=== PATIENT | female | born 1960 | race African-American/Black ===

== ENCOUNTER 2024-09-25 22:41 | Inpatient (IN) | payer OTHER, MEDICAID ==
[~2024-09-25] VITALS: Ht 157.5 cm; Wt 55.5 kg
[2024-09-25] MEDS ORDERED: LABETALOL 20 MG/4 ML VIAL ONE (23:44)
[2024-09-26] MEDS: LABETALOL HCL IV 100MG VIAL IV ONE (00:10)
[2024-09-26] MEDS ORDERED: CLONIDINE HCL 0.1 MG TABLET ONE (00:22)
[2024-09-26] MEDS: CLONIDINE HCL 0.1 MG TABLET PO ONE (00:42)
[2024-09-26] MEDS ORDERED: ACETAMINOPHEN W/ CODEINE#3 1 EA TABLET ONE (00:58)
[2024-09-26 01:17] LABS: BASOPHILS % (AUTO) 0.6 % (0.0-2.0); EOSINOPHILS % (AUTO) 0.6 % (0.0-6.0); HEMATOCRIT 35 % (33-45); HEMOGLOBIN 11.4 g/dL (11.5-14.8); LYMPHOCYTES # (AUTO) 1.2 K/uL (0.8-4.8); LYMPHOCYTES % (AUTO) 26.7 % (20.0-44.0); MEAN CORPUSCULAR HEMOGLOBIN 29 PG (26.0-33.0); MEAN CORPUSCULAR HGB CONC 33 g/dl (31.0-36.0); MEAN CORPUSCULAR VOLUME 89 fL (82-100); MONOCYTES # (AUTO) 0.5 K/uL (0.1-1.30); MONOCYTES % (AUTO) 12.1 % (2.0-12.0); NEUTROPHILS # (AUTO) 2.7 K/uL (1.8-8.9); PLATELET COUNT (AUTO) 247 K/uL (150-450); RED BLOOD CELL COUNT(AUTO) 3.88 MIL/uL (4.0-5.2); RED CELL DISTRIBUTION WIDTH 14.1 % (11.5-15.0); WHITE BLOOD COUNT (AUTO) 4.4 K/uL (4.3-11.0)
[2024-09-26] MEDS: ACETAMINOPHEN W/ CODEINE#3 1 EA TABLET PO ONE (01:20)
[2024-09-26 01:24] LABS: APPEARANCE,URINE CLEAR (CLEAR); BILIRUBIN,URINE NEGATIVE (NEGATIVE); BLOOD, URINE TRACE-INTA Ery/uL (NEGATIVE); COLOR,URINE YELLOW (YELLOW); KETONES,URINE NEGATIVE (NEGATIVE); LEUKOCYTE ESTERASE ,URINE TRACE (NEGATIVE); NITRITE, URINE NEGATIVE (NEGATIVE); PROTEIN,URINE NEGATIVE (NEGATIVE); UGLUCOSE NEGATIVE (NEGATIVE); UROBILINOGEN,URINE 0.2 EU/dL (0.2)
[2024-09-26 01:27] LABS: CALCIUM, SERUM 9.7 mg/dL (8.5-10.1); POTASSIUM 3.9 mmol/L (3.5-5.1)
[2024-09-26 01:39] LABS: ALBUMIN 3.6 g/dL (3.4-5.0); BILIRUBIN,TOTAL 0.2 mg/dL (0.2-1.0); TOTAL PROTEIN, SERUM 8.3 g/dL (6.4-8.2)
[2024-09-26] MEDS ORDERED: MAG HYDROX/AL HYDROX/SIMETH 30 ML UDC PO PRN (02:00)
[2024-09-26] MEDS ORDERED: MAGNESIUM HYDROXIDE 30 ML UDC PO PRN (02:00)
[2024-09-26] MEDS ORDERED: Z GUARD REMEDY 4 OZ OINT TP PRN (02:00)
[2024-09-26 02:14] LABS: SQUAMOUS EPITHELIAL CELL,UR Moderate /HPF (None Seen)
[2024-09-26 02:15] LABS: ADD URINE CULTURE YES; BACTERIA,URINE Few /HPF (None Seen)
[2024-09-26 04:00] VITALS: BP 158/84; TEMP 98.1; O2SAT 97
[2024-09-26] MEDS: HYDROCHLOROTHIAZIDE 25 MG TABLET PO ONE (04:17)
[2024-09-26 08:00] VITALS: BP 200/95; TEMP 98.1; O2SAT 99
[2024-09-26] MEDS: ENALAPRILAT INJ (1.25 MG/ML) 1.25 MG/ML VIAL IV ONE (08:37)
[2024-09-26] MEDS ORDERED: CARV25TA2 PO (08:52)
[2024-09-26] MEDS ORDERED: CLON0.3T PO (08:53)
[2024-09-26] MEDS: HYDROCHLOROTHIAZIDE 25 MG TABLET ONE (09:00)
[2024-09-26] MEDS: ISOSORBIDE DINITRATE (20MG) 20 MG TABLET PO SCH (09:30)
[2024-09-26] MEDS ORDERED: hydrALAZINE HCL 50 MG TABLET PO SCH ×2 (09:30→13:00)
[2024-09-26] MEDS ORDERED: FURO-145 PO (09:38)
[2024-09-26] MEDS ORDERED: ACET-2605 PO (09:48)
[2024-09-26] MEDS ORDERED: MONT10TA22 PO (09:49)
[2024-09-26] MEDS ORDERED: MECL-159 PO (09:51)
[2024-09-26] MEDS ORDERED: MULT-594 PO (10:09)
[2024-09-26] MEDS ORDERED: LOSA50TA39 PO (10:09)
[2024-09-26] MEDS ORDERED: BISA10SU11 RC (10:09)
[2024-09-26] MEDS ORDERED: ONDA-97 PO (10:09)
[2024-09-26] MEDS ORDERED: NA P133E RC (10:09)
[2024-09-26] MEDS ORDERED: ACET325T53 PO (10:09)
[2024-09-26] MEDS ORDERED: FERR325T24 PO (10:09)
[2024-09-26] MEDS ORDERED: DOCU100T2 PO (10:09)
[2024-09-26] MEDS ORDERED: WARF-58 PO (10:09)
[2024-09-26] MEDS ORDERED: MAGN400O6 PO (10:09)
[2024-09-26] MEDS ORDERED: ACET1TAB23 PO (10:09)
[2024-09-26] MEDS: CLONIDINE HCL 0.1 MG TABLET PO SCH ×2 (10:19→18:20)
[2024-09-26] MEDS: CARVEDILOL 12.5 MG TABLET PO SCH (10:20)
[2024-09-26] MEDS ORDERED: IV NS 0.9% 250 ML IV ONE (10:54)
[2024-09-26] MEDS ORDERED: IOHEXOL-350 100 ML VIAL IV ONE (10:54)
[2024-09-26] MEDS ORDERED: CT SWABBABLE VALVE TRANS SET 1 EA INFUS.SET MC ONE (10:54)
[2024-09-26 11:15] LABS: D-DIMER 0.76 mg/L(FEU (0.17-0.50); INR 2.06 (0.91-1.10); PARTIAL THROMBOPLASTIN TIME 37.6 SEC (24.3-34.3); PROTHROMBIN TIME 20.8 SECS (9.2-11.1)
[2024-09-26 12:00] VITALS: BP 162/86; TEMP 97.9; O2SAT 99
[2024-09-26 16:00] VITALS: BP 174/76; TEMP 98.1; O2SAT 98
[2024-09-26] MEDS ORDERED: LOSARTAN POTASSIUM 50 MG TABLET PO PRN (17:30)
[2024-09-26] MEDS: NIFEdipine XL (30MG) 30 MG TAB PO SCH (17:30)
[2024-09-26] MEDS: DOCUSATE SODIUM 100 MG CAPSULE PO SCH (18:21)
[2024-09-26] MEDS: MONTELUKAST SODIUM (10MG) 10 MG TABLET PO SCH (18:21)
[2024-09-26 20:00] VITALS: BP_SYST 186; BP_SYST 190; BP_DIAS 89; BP_DIAS 90; TEMP 97.9; O2SAT 99
[2024-09-26] MEDS: CLONIDINE HCL 0.1 MG TABLET PO PRN (22:07)
[2024-09-26] MEDS ORDERED: LABETALOL HCL IV 100MG VIAL IV PRN (23:30)
[2024-09-27] VITALS (9 sets, daily range): BP systolic 143–198; BP diastolic 73–96; TEMP 97.7–98.4; O2SAT 100
[2024-09-27] MEDS: ACETAMINOPHEN 325 MG TABLET PO PRN (01:12)
[2024-09-27 07:10] LABS: BASOPHILS % (AUTO) 0.6 % (0.0-2.0); EOSINOPHILS % (AUTO) 0.9 % (0.0-6.0); HEMATOCRIT 35 % (33-45); HEMOGLOBIN 11.1 g/dL (11.5-14.8); LYMPHOCYTES # (AUTO) 1.1 K/uL (0.8-4.8); LYMPHOCYTES % (AUTO) 39.3 % (20.0-44.0); MEAN CORPUSCULAR HEMOGLOBIN 28 PG (26.0-33.0); MEAN CORPUSCULAR HGB CONC 32 g/dl (31.0-36.0); MEAN CORPUSCULAR VOLUME 88 fL (82-100); MONOCYTES # (AUTO) 0.4 K/uL (0.1-1.30); MONOCYTES % (AUTO) 16.1 % (2.0-12.0); NEUTROPHILS # (AUTO) 1.2 K/uL (1.8-8.9); NEUTROPHILS % (AUTO) 43.1 % (43.0-81.0); PLATELET COUNT (AUTO) 223 K/uL (150-450); RED BLOOD CELL COUNT(AUTO) 3.94 MIL/uL (4.0-5.2); RED CELL DISTRIBUTION WIDTH 13.9 % (11.5-15.0); WHITE BLOOD COUNT (AUTO) 2.7 K/uL (4.3-11.0)
[2024-09-27 07:11] LABS: CALCIUM, SERUM 9.8 mg/dL (8.5-10.1); CREATININE 0.9 mg/dL (0.6-1.3); PHOSPHORUS 3.9 mg/dL (2.5-4.9); POTASSIUM 4.2 mmol/L (3.5-5.1)
[2024-09-27] MEDS: VALSARTAN 80 MG TABLET PO SCH (09:00)
[2024-09-27] MEDS ORDERED: MONTELUKAST SODIUM (10MG) 10 MG TABLET PO SCH (09:00)
[2024-09-27] MEDS ORDERED: FUROSEMIDE 20 MG TABLET PO SCH (09:00)
[2024-09-27] MEDS ORDERED: DOCUSATE SODIUM 100 MG CAPSULE PO SCH (09:00)
[2024-09-27] MEDS: MULTIVITAMINS,THERAGRAN 1 UDTAB TABLET PO SCH (09:20)
[2024-09-27] MEDS: FERROUS SULFATE (325 MG) 325 MG/TAB TABLET PO SCH (09:20)
[2024-09-27] MEDS: APIXABAN 5 MG TABLET PO SCH (09:25)
[2024-09-27] MEDS ORDERED: LABETALOL HCL (100MG) 100 MG TABLET PO SCH (11:00)
[2024-09-27] MEDS: ACETAMINOPHEN W/ CODEINE#3 1 EA TABLET PO PRN (14:48)
[2024-09-28] VITALS: BP 150/79; TEMP 98.4; O2SAT 100
[2024-09-28 01:00] VITALS: BP 185/82
[2024-09-28 04:00] VITALS: BP 156/93; TEMP 98.1; O2SAT 100
[2024-09-28 08:00] VITALS: BP 153/91; TEMP 98.2; O2SAT 100
[2024-09-28] MEDS: NIFEdipine XL (30MG) 30 MG TAB PO SCH (08:44)
[2024-09-28 16:00] VITALS: BP 151/80; TEMP 98.2; O2SAT 100
[2024-09-28 20:00] VITALS: BP 166/82; TEMP 98.8; O2SAT 98
[2024-09-28] MEDS: CLONIDINE HCL 0.1 MG TABLET PO PRN (22:08)
[2024-09-29 00:38] VITALS: BP 161/85
[2024-09-29 08:00] VITALS: TEMP 98.8; O2SAT 99
[2024-09-29] MEDS: NIFEdipine XL (30MG) 30 MG TAB PO SCH (09:04)
[2024-09-29 11:16] VITALS: BP 212/86; TEMP 98.8; O2SAT 99
[2024-09-29 16:00] VITALS: BP 153/76; TEMP 98.8; O2SAT 100
[2024-09-29 20:00] VITALS: BP 173/79; TEMP 98.4; O2SAT 100
[2024-09-29 20:10] VITALS: BP 164/80
[2024-09-29] MEDS: CARVEDILOL 12.5 MG TABLET PO SCH (20:56)
[2024-09-30] MEDS: ONDANSETRON HCL/PF 4 MG/2 ML VIAL IVP PRN (00:26)
[2024-09-30 04:00] VITALS: BP 135/76; TEMP 98.2; O2SAT 100
[2024-09-30] MEDS: NIFEdipine XL (30MG) 30 MG TAB PO SCH (08:30)
[2024-09-30 08:34] VITALS: BP 129/78; TEMP 98.2; O2SAT 100
[2024-09-30] MEDS ORDERED: NIFEdipine XL (30MG) 30 MG TAB PO SCH (09:00)
[2024-09-30 16:48] VITALS: BP 136/77; TEMP 98.1; O2SAT 100
== END 2024-09-30 17:10 | DRG 304 ==
LOC: ER 22:46 → TELE 09-26 02:06 → MED 09-28 11:23
PROVIDERS: ADMIT Nurse Practitioner Acute Care
DX: I16.0 Hypertensive urgency (principal); I63.9 Cerebral infarction, unspecified; G45.9 Transient cerebral ischemic attack, unspecified; N39.0 Urinary tract infection, site not specified; I42.7 Cardiomyopathy due to drug and external agent; I10 Essential (primary) hypertension; I25.10 Atherosclerotic heart disease of native coronary artery without angina pectoris; R79.1 Abnormal coagulation profile; D63.8 Anemia in other chronic diseases classified elsewhere; I25.2 Old myocardial infarction; Z87.09 Personal history of other diseases of the respiratory system; F41.9 Anxiety disorder, unspecified; Z88.5 Allergy status to narcotic agent; Z88.1 Allergy status to other antibiotic agents; Z88.8 Allergy status to other drugs, medicaments and biological substances; Z79.51 Long term (current) use of inhaled steroids; Z86.711 Personal history of pulmonary embolism; Z79.01 Long term (current) use of anticoagulants; Z86.718 Personal history of other venous thrombosis and embolism; T45.515A Adverse effect of anticoagulants, initial encounter; Y92.129 Unspecified place in nursing home as the place of occurrence of the external cause; R29.702 NIHSS score 2
CPT/HCPCS: 36415; 70450-TC; 71045-TC; 80048-TC; 80053-TC; 80061-TC; 81001; 83735-TC; 83880; 84100-TC; 84484-TC; 85025-TC; 85378-TC; 85730-TC; 87081-TC; 87086-TC; 87186-TC; 93970-TC; G0378; J2405; J3490; J7050; Q9967

== ENCOUNTER 2024-10-17 19:13 | Inpatient (IN) | payer OTHER, MEDICAID ==
[~2024-10-17] VITALS: Ht 162.6 cm; Wt 74.8 kg
[~2024-10-17 19:13] MED LIST: ACET1TAB23 PO; ACET325T53 PO; BISA10SU11 RC; CARV25TA2 PO; CLON0.3T PO; DOCU100T2 PO; FERR325T24 PO; FURO-145 PO; LOSA50TA39 PO; MAGN400O6 PO; MECL-159 PO; MONT10TA22 PO; MULT-594 PO; NA P133E RC; ONDA-97 PO; WARF-58 PO
[2024-10-17 20:10] LABS: BASOPHILS % (AUTO) 0.5 % (0.0-2.0); EOSINOPHILS # (AUTO) 0.1 K/uL (0.0-0.7); EOSINOPHILS % (AUTO) 1.7 % (0.0-6.0); HEMATOCRIT 34 % (33-45); HEMOGLOBIN 10.8 g/dL (11.5-14.8); LYMPHOCYTES # (AUTO) 1.2 K/uL (0.8-4.8); LYMPHOCYTES % (AUTO) 37.8 % (20.0-44.0); MEAN CORPUSCULAR HEMOGLOBIN 29 PG (26.0-33.0); MEAN CORPUSCULAR HGB CONC 32 g/dl (31.0-36.0); MEAN CORPUSCULAR VOLUME 88 fL (82-100); MONOCYTES # (AUTO) 0.6 K/uL (0.1-1.30); NEUTROPHILS # (AUTO) 1.3 K/uL (1.8-8.9); PLATELET COUNT (AUTO) 234 K/uL (150-450); RED BLOOD CELL COUNT(AUTO) 3.81 MIL/uL (4.0-5.2); RED CELL DISTRIBUTION WIDTH 14.6 % (11.5-15.0); WHITE BLOOD COUNT (AUTO) 3.1 K/uL (4.3-11.0)
[2024-10-17 20:18] LABS: CALCIUM, SERUM 9.7 mg/dL (8.5-10.1); CREATININE 1.2 mg/dL (0.6-1.3); POTASSIUM 4.1 mmol/L (3.5-5.1)
[2024-10-17] MEDS ORDERED: CLONIDINE HCL 0.1 MG TABLET PO ONE ×2 (20:30→21:00)
[2024-10-17] MEDS ORDERED: CLONIDINE HCL 0.1 MG TABLET ONE (21:00)
[2024-10-17] MEDS: CLONIDINE HCL 0.1 MG TABLET PO ONE ×2 (21:13→23:43)
[2024-10-18] MEDS ORDERED: NIFEdipine (10MG) 10 MG CAPSULE PO ONE (08:06)
[2024-10-18] MEDS ORDERED: FUROSEMIDE 20 MG TABLET ONE (08:06)
[2024-10-18] MEDS: FUROSEMIDE 20 MG TABLET PO SCH (08:15)
[2024-10-18] MEDS: NIFEdipine XL (30MG) 30 MG TAB PO SCH (08:22)
[2024-10-18] MEDS ORDERED: CLONIDINE HCL 0.1 MG TABLET PO STA (09:10)
[2024-10-18] MEDS ORDERED: CLONIDINE HCL 0.1 MG TABLET ONE (09:56)
[2024-10-18] MEDS ORDERED: LOSARTAN POTASSIUM 50 MG TABLET PO PRN (10:00)
[2024-10-18] MEDS: CLONIDINE HCL 0.3 MG/24H PTWK 1 EA PATCH TD SCH (10:00)
[2024-10-18] MEDS: CLONIDINE HCL 0.1 MG TABLET PO STA (10:03)
[2024-10-18] MEDS ORDERED: ONDANSETRON HCL/PF 4 MG/2 ML VIAL IVP PRN (10:30)
[2024-10-18] MEDS ORDERED: MAGNESIUM HYDROXIDE 30 ML UDC PO PRN (10:30)
[2024-10-18] MEDS ORDERED: Z GUARD REMEDY 4 OZ OINT TP PRN (10:30)
[2024-10-18] MEDS ORDERED: ZOLPIDEM TARTRATE 5 MG TABLET PO PRN (10:30)
[2024-10-18] MEDS ORDERED: MAG HYDROX/AL HYDROX/SIMETH 30 ML UDC PO PRN (10:30)
[2024-10-18] MEDS: ACETAMINOPHEN 325 MG TABLET PO PRN (12:29)
[2024-10-18] MEDS ORDERED: NIFE-35 PO (13:46)
[2024-10-18] MEDS ORDERED: APIX5TAB PO (13:46)
[2024-10-18] MEDS ORDERED: CLON0.1T PO (13:46)
[2024-10-18] MEDS: APIXABAN 5 MG TABLET PO SCH (17:00)
[2024-10-18] MEDS: CARVEDILOL 12.5 MG TABLET PO SCH (17:28)
[2024-10-18 20:00] VITALS: BP 113/76; TEMP 98.2; O2SAT 100
[2024-10-18] MEDS: CLONIDINE HCL 0.1 MG TABLET PO SCH (22:56)
[2024-10-19] VITALS (7 sets, daily range): BP systolic 134–177; BP diastolic 70–78; TEMP 97.9–98.2; O2SAT 98–100
[2024-10-19 06:52] LABS: INR 1.03 (0.91-1.10); PROTHROMBIN TIME 10.9 SECS (9.2-11.1)
[2024-10-19 06:57] LABS: CALCIUM, SERUM 10.1 mg/dL (8.5-10.1); CREATININE 1.1 mg/dL (0.6-1.3); MAGNESIUM 2.1 mg/dL (1.8-2.4); PHOSPHORUS 4.1 mg/dL (2.5-4.9); POTASSIUM 4.1 mmol/L (3.5-5.1)
[2024-10-19 06:58] LABS: BASOPHILS # (AUTO) 0.1 K/uL (0.0-0.2); BASOPHILS % (AUTO) 2.8 % (0.0-2.0); EOSINOPHILS # (AUTO) 0.1 K/uL (0.0-0.7); HEMATOCRIT 33 % (33-45); LYMPHOCYTES # (AUTO) 1.6 K/uL (0.8-4.8); MEAN CORPUSCULAR HEMOGLOBIN 29 PG (26.0-33.0); MEAN CORPUSCULAR HGB CONC 33 g/dl (31.0-36.0); MEAN CORPUSCULAR VOLUME 88 fL (82-100); MONOCYTES # (AUTO) 0.4 K/uL (0.1-1.30); NEUTROPHILS # (AUTO) 1.2 K/uL (1.8-8.9); NEUTROPHILS % (AUTO) 36.2 % (43.0-81.0); PLATELET COUNT (AUTO) 226 K/uL (150-450); RED BLOOD CELL COUNT(AUTO) 3.76 MIL/uL (4.0-5.2); RED CELL DISTRIBUTION WIDTH 14.4 % (11.5-15.0); WHITE BLOOD COUNT (AUTO) 3.4 K/uL (4.3-11.0)
[2024-10-19] MEDS: MULTIVITAMINS,THERAGRAN 1 UDTAB TABLET PO SCH (08:34)
[2024-10-19] MEDS: NIFEdipine XL (30MG) 30 MG TAB PO SCH (08:34)
[2024-10-19] MEDS: FERROUS SULFATE (325 MG) 325 MG/TAB TABLET PO SCH (08:34)
[2024-10-19] MEDS: FUROSEMIDE 20 MG TABLET PO SCH (08:34)
[2024-10-19] MEDS: MONTELUKAST SODIUM (10MG) 10 MG TABLET PO SCH (08:34)
[2024-10-19] MEDS ORDERED: APIX2.5T PO (11:34)
[2024-10-19] MEDS ORDERED: ASPI-1169 PO (11:34)
[2024-10-19] MEDS ORDERED: CARV25TA2 PO (11:34)
[2024-10-19] MEDS ORDERED: FURO-145 PO (11:34)
[2024-10-20] MEDS ORDERED: ASPIRIN 81 MG TAB.CHEW PO SCH (09:00)
== END 2024-10-19 19:35 | DRG 605 ==
LOC: ER 19:13 → TELE 10-18 05:29
PROVIDERS: ADMIT Nurse Practitioner Acute Care; ATTEND Nurse Practitioner Acute Care
DX: S00.83XA Contusion of other part of head, initial encounter (principal); I16.0 Hypertensive urgency; I10 Essential (primary) hypertension; Z86.711 Personal history of pulmonary embolism; Z86.73 Personal history of transient ischemic attack (TIA), and cerebral infarction without residual deficits; I25.2 Old myocardial infarction; Z86.718 Personal history of other venous thrombosis and embolism; Z87.09 Personal history of other diseases of the respiratory system; D64.9 Anemia, unspecified; F41.9 Anxiety disorder, unspecified; Z88.1 Allergy status to other antibiotic agents; Z88.5 Allergy status to narcotic agent; Z88.8 Allergy status to other drugs, medicaments and biological substances; Z79.01 Long term (current) use of anticoagulants; Z79.899 Other long term (current) drug therapy; D72.819 Decreased white blood cell count, unspecified; R79.89 Other specified abnormal findings of blood chemistry; F29 Unspecified psychosis not due to a substance or known physiological condition; F39 Unspecified mood [affective] disorder; Z91.148 Patient's other noncompliance with medication regimen for other reason; W22.09XA Striking against other stationary object, initial encounter; Y92.129 Unspecified place in nursing home as the place of occurrence of the external cause; Z79.82 Long term (current) use of aspirin
CPT/HCPCS: 36415; 70450-TC; 71045-TC; 80048-TC; 80061-TC; 83735-TC; 84100-TC; 84484-TC; 85025-TC; 85378-TC; 85610-TC; 97110-TC; 97530-TC; G0378